=== PATIENT | female | born 1995 | race Caucasian/White ===

== ENCOUNTER 2023-03-24 21:09 | Inpatient (IN) ==
[2023-03-24] MEDS ORDERED: Lidocaine 1% VIAL 10 MG/ML 30 ML VIAL INJ PRN (21:37)
[2023-03-24] MEDS ORDERED: Buffered Lidocaine 1% SYRIN 1 ml INTRADERM ONE (21:37)
[2023-03-24] MEDS ORDERED: Lactated Ringers 1000 ml BAG 1,000 ML IV ONE (21:37)
[2023-03-24] MEDS ORDERED: Oxytocin in LR 20,000 MILLI.UNIT/1,000 ML BAG IV SCH (21:40)
[2023-03-24] MEDS ORDERED: Calcium Carb (TUMS) 500 mg CHEW TAB PO PRN (21:43)
[2023-03-24] MEDS ORDERED: Ondansetron 4 mg VIAL 2 MG/ML 2 ml VIAL IV PRN (21:43)
[2023-03-24 23:04] LABS: ABS Basophils 0.1 10^3/uL (0.0-0.1); ABS Lymphocytes 1.4 10^3/uL (1.0-4.8); ABS Monocytes 0.7 10^3/uL (0.0-0.9); Eosinophil % 0.1 %; Hemoglobin 10.7 g/dL (11.5-14.3); Lymphocyte % 10.6 %; Mean Corpuscular Hemoglobin 28.6 pg (27-33); Mean Corpuscular Hgb Conc 33.5 g/dL (31-36); Mean Corpuscular Volume 85.4 fL (80-97); Mean Platelet Volume 9.2 fL (7.5-11.2); Platelet Count 270 10^3/uL (150-450); Red Blood Count 3.75 10^6/uL (3.63-4.92); Red Cell Distribution Width 13.9 % (12-17); White Blood Count 13.2 10^3/uL (3.8-11.8)
[2023-03-24 23:22] LABS: Albumin 3.5 g/dL (3.2-5.2); Albumin/Globulin Ratio 1.1 (1-3); Calcium 8.8 mg/dL (8.6-10.3); Creatinine, Serum 0.73 mg/dL (0.51-0.95); Globulin 3.2 g/dL (2-4); Total Bilirubin 0.3 mg/dL (0.2-1.0); Total Protein 6.7 g/dL (6.4-8.9); eGFR CKD-EPI 116.2 (>60)
[2023-03-25 00:01] LABS: Urine Benzodiazepine Screen None Detected (None Detect); Urine Cannabinoids Screen None Detected (None Detect); Urine Opiates Screen None Detected (None Detect)
[2023-03-25] MEDS ORDERED: Lidocaine 2% JELLY 6 ML Topical TOPICAL ONE (00:07)
[2023-03-25] MEDS: Lactated Ringers 1000 ml BAG 1,000 ML IV SCH ×2 (01:31→07:15)
[2023-03-25] MEDS ORDERED: OBEPIDURAL (200 ML) 200 ML EPIDURAL ONE (03:40)
[2023-03-25] MEDS ORDERED: Lidocaine 1.5% EPI 1:200,000 30 ML SDV ONE (03:40)
[2023-03-25 05:31] LABS: Urine Appearance Cloudy; Urine Bilirubin Negative (Negative); Urine Blood Negative (Negative); Urine Color Yellow; Urine Glucose Negative (Negative); Urine Ketones 1+ (Negative); Urine Nitrite Negative (Negative); Urine Protein 1+(30 mg/dL) (Negative); Urine Specific Gravity 1.028 (1.002-1.030); Urine Urobilinogen Negative (Negative)
[2023-03-25 05:34] LABS: Urine Bacteria Absent (Absent); Urine Red Blood Cell Absent (Absent); Urine White Blood Cell Trace(0-5/hpf) (Absent)
[2023-03-25] MEDS ORDERED: Lactated Ringers 1000 ml BAG 500 ML IV PRN ×2 (08:34)
[2023-03-25] MEDS ORDERED: Lactated Ringers 1000 ml BAG 1,000 ML IV ONE (08:34)
[2023-03-25] MEDS ORDERED: Phenylephrine 40 mcg/mL 10mL (400mcg) SYRINGE IV PUSH PRN ×2 (08:34)
[2023-03-25] MEDS ORDERED: Sodium Citrate/Citric Acid LIQ 15 ML UDC PO PRN (08:34)
[2023-03-25] MEDS ORDERED: OBEPIDURAL (200 ML) 200 ML EPIDURAL SCH (09:00)
[2023-03-25] MEDS ORDERED: Lactated Ringers 1000 ml BAG 1,000 ML IV SCH ×2 (09:00→14:00)
[2023-03-25] MEDS ORDERED: Dibucaine 1% OINT 28.35 GM TUBE PR PRN (13:52)
[2023-03-25] MEDS ORDERED: Witch Hazel PAD JAR TOPICAL PRN (13:52)
[2023-03-25] MEDS ORDERED: Oxytocin in LR 20,000 MILLI.UNIT/1,000 ML BAG IV SCH (13:55)
[2023-03-26 07:33] LABS: ABS Eosinophils 0.1 10^3/uL (0.0-0.5); ABS Lymphocytes 1.7 10^3/uL (1.0-4.8); ABS Neutrophils 8.8 10^3/uL (1.5-7.6); Eosinophil % 0.5 %; Hematocrit 25.5 % (35-45); Hemoglobin 8.6 g/dL (11.5-14.3); Lymphocyte % 14.6 %; Mean Corpuscular Hemoglobin 29.2 pg (27-33); Mean Corpuscular Hgb Conc 33.9 g/dL (31-36); Mean Corpuscular Volume 86.3 fL (80-97); Mean Platelet Volume 8.8 fL (7.5-11.2); Platelet Count 198 10^3/uL (150-450); Red Blood Count 2.95 10^6/uL (3.63-4.92); Red Cell Distribution Width 13.7 % (12-17); White Blood Count 11.5 10^3/uL (3.8-11.8)
[2023-03-27 07:55] VITALS: BP 125/73
== END 2023-03-27 10:33 | disposition home or self-care (01) | DRG 560 ==
LOC: MCHOBOUT 21:09 → MCHOB 21:09
PROVIDERS: ADMIT Advanced Practice Midwife; ATTEND Midwife